=== PATIENT | female | born 1950 | race Caucasian/White ===

== ENCOUNTER 2023-10-16 11:33 | Emergency (ER) | payer BC, MEDICARE, OTHER ==
[~2023-10-16] VITALS: Ht 162.6 cm; Wt 55.0 kg
[2023-10-16] MEDS ORDERED: IBUP1TAB5 PO (14:50)
[2023-10-16 14:59] VITALS: BP 135/69; PULSE 83; RESP 15; TEMP 97.9; O2SAT 97
== END 2023-10-16 15:01 | disposition home or self-care (01) ==
LOC: ER 11:33
DX: S92.001A Unspecified fracture of right calcaneus, initial encounter for closed fracture (principal); S51.811A Laceration without foreign body of right forearm, initial encounter; E11.9 Type 2 diabetes mellitus without complications; E78.5 Hyperlipidemia, unspecified; I10 Essential (primary) hypertension; Z88.0 Allergy status to penicillin; X50.1XXA Overexertion from prolonged static or awkward postures, initial encounter; Y93.89 Activity, other specified; Y92.89 Other specified places as the place of occurrence of the external cause; Y99.8 Other external cause status
CPT/HCPCS: 29515; 73600